=== PATIENT | male | born 1995 | race Caucasian/White ===

== ENCOUNTER → 2023-10-05 06:25 | Day surgery (SDC) | payer BC, SELFPAY | LOC: GI 06:25 | PROVIDERS: ATTENDING PHYSICIAN Internal Medicine Gastroenterology | DX: K29.50 Unspecified chronic gastritis without bleeding (principal); K22.89 Other specified disease of esophagus; K44.9 Diaphragmatic hernia without obstruction or gangrene; K31.7 Polyp of stomach and duodenum; K20.90 Esophagitis, unspecified without bleeding; R13.10 Dysphagia, unspecified; R12 Heartburn | CPT/HCPCS: 43239; 88305; 88342 ==